=== PATIENT | female | born 1995 | race African-American/Black ===

== ENCOUNTER 2017-09-20 10:37 | Emergency (ER) | payer OTHER ==
[~2017-09-20] VITALS: Ht 160 cm; Wt 95.5 kg
[2017-09-20 10:45] VITALS: BP 132/80
== END 2017-09-20 13:26 | disposition left against medical advice (07) ==
LOC: EMS 10:39 → EEVIPCON 10:39 → EMS 13:26
DX: T76.21XA Adult sexual abuse, suspected, initial encounter (principal)
CPT/HCPCS: 99281

== ENCOUNTER 2017-11-08 15:35 | Emergency (ER) | payer OTHER ==
[~2017-11-08] VITALS: Ht 160 cm; Wt 86.4 kg
[2017-11-08 15:48] VITALS: BP 127/75
[2017-11-08] MEDS ORDERED: PROPARACAINE/FLUORESCEIN SOD 0.5-0.25% 0.5 ML OPHTHALMIC SOLUTION OD ONE (17:00)
[2017-11-08] MEDS ORDERED: ACETAMINOPHEN 325 MG TABLET PO ONE (17:00)
[2017-11-08] MEDS ORDERED: SULFACETAMIDE SODIUM 10% 15 ML OPHTHALMIC SOLUTION OD ONE (17:30)
== END 2017-11-08 18:36 | disposition home or self-care (01) ==
LOC: EMS 15:36
DX: H10.9 Unspecified conjunctivitis (principal)
CPT/HCPCS: 99284; Z7610

== ENCOUNTER 2018-09-21 09:32 | Emergency (ER) | payer OTHER ==
[~2018-09-21] VITALS: Ht 162.6 cm; Wt 100.0 kg
[2018-09-21 13:42] VITALS: BP 131/79
== END 2018-09-21 14:24 | disposition home or self-care (01) ==
LOC: EMS 09:32
DX: K52.9 Noninfective gastroenteritis and colitis, unspecified (principal)